=== PATIENT | male | born 1940 | race Two or more races ===

== ENCOUNTER → 2016-10-02 | Outpatient (CLI) | payer MEDICARE, MEDICAID ==
[~2016-10-02] MED LIST: ATOR20TA9 PO; CHOL500050 PO; FERR324T8 PO; GABA300C10 PO; LISI1TAB5 PO; METF10002 PO
[2016-10-02 12:08] LABS: ASPARTATE AMINO TRANSFERASE 9 U/L (15-37); BLOOD UREA NITROGEN 34 mg/dL (7-18)
[2016-10-02 14:05] LABS: ANISOCYTOSIS 2+; MICROCYTOSIS 2+
[2016-10-02 14:06] LABS: OVALOCYTES 1+; POLYCHROMASIA 1+
== END | disposition home or self-care (01) ==
LOC: STAR 10:47
DX: Z01.818 Encounter for other preprocedural examination (principal); R94.31 Abnormal electrocardiogram [ECG] [EKG]; Q27.33 Arteriovenous malformation of digestive system vessel; D64.9 Anemia, unspecified; K92.2 Gastrointestinal hemorrhage, unspecified
CPT/HCPCS: 36415; 80053; 85025; 93005

== ENCOUNTER 2016-10-06 10:13 | Day surgery (SDC) | payer MEDICARE, MEDICAID ==
[~2016-10-06] VITALS: Ht 157.5 cm; Wt 63.0 kg
[2016-10-06] MEDS ORDERED: LACTATED RINGERS 1,000 ML IV SCH (10:25)
[2016-10-06 10:47] VITALS: BP 128/80
[2016-10-06] MEDS ORDERED: MIDAZOLAM 1 MG/ML, 2ML ONE (12:23)
[2016-10-06] MEDS ORDERED: ONDANSETRON 2MG/ML, 2ML ONE (12:35)
[2016-10-06] MEDS ORDERED: PROPOFOL 10 MG/ML, 20ML ONE (12:35)
[2016-10-06] MEDS ORDERED: METOPROLOL 1 MG/ML, 5ML IV PRN (13:00)
[2016-10-06] MEDS ORDERED: ALBUTEROL SULFATE 2.5 MG/3 ML NPPB PRN (13:00)
[2016-10-06] MEDS ORDERED: hydrALAzine 20 MG/ML, 1ML IV PRN (13:00)
[2016-10-06] MEDS ORDERED: ONDANSETRON 2MG/ML, 2ML IVPush PRN (13:00)
[2016-10-06] MEDS ORDERED: ACETAMINOPHEN 325 MG TABLET PO PRN (13:00)
[2016-10-06] MEDS ORDERED: FENTANYL PF 100 MCG/2ML IV PRN (13:00)
[2016-10-06] MEDS ORDERED: LABETALOL 5MG/ML, 20ML IV PRN (13:00)
[2016-10-06] MEDS ORDERED: EPHEDRINE 50 MG/ML, 1ML IVPush PRN (13:00)
[2016-10-06] MEDS ORDERED: HYDROmorphone 1 MG/ML, 1ML IV PRN (13:00)
[2016-10-06] MEDS ORDERED: OXYcodone 5 MG/5 ML ORAL.SOL UDC PO PRN (13:00)
[2016-10-06] MEDS ORDERED: PROMETHAZINE 25 MG/ML, 1ML IV PRN (13:00)
== END 2016-10-06 14:35 ==
LOC: OUT 10:13
DX: K55.21 Angiodysplasia of colon with hemorrhage (principal); K26.9 Duodenal ulcer, unspecified as acute or chronic, without hemorrhage or perforation; D64.9 Anemia, unspecified; I10 Essential (primary) hypertension; E11.9 Type 2 diabetes mellitus without complications
CPT/HCPCS: 44369; 82962; J2250; J2405; J2704; J7120

== ENCOUNTER → 2017-12-07 | Outpatient (CLI) | payer MEDICARE, MEDICAID ==
[~2017-12-07] VITALS: Ht 157.5 cm; Wt 67.3 kg
[~2017-12-07] MED LIST changes: +FURO20TA3 PO; +HYDR-3341 PO; +LINA5TAB PO; +LISI-167 PO; +OMEP20TA62 PO; +SODI650T PO
[2017-12-07 10:19] LABS: BASOPHILS # (AUTO) 0.04 x10^3/uL (0-0.1); BASOPHILS % (AUTO) 1 % (0-1); EOSINOPHILS # (AUTO) 0.38 x10^3/uL (0-0.4); EOSINOPHILS % (AUTO) 5 % (1-7); LYMPHOCYTES # (AUTO) 1.28 x10^3/uL (1-3.4); LYMPHOCYTES % (AUTO) 16 % (22-44); MD NO; MEAN CORPUSCULAR HEMOGLOBIN 31.1 pg (27.5-34.5); MEAN CORPUSCULAR HGB CONC 32.5 g/dL (33.2-36.2); MEAN CORPUSCULAR VOLUME 95.6 fL (81-97); MEAN PLATELET VOLUME 9.6 fL (7.4-10.4); MONOCYTES # (AUTO) 0.56 x10^3/uL (0.2-0.8); MONOCYTES % (AUTO) 7 % (2-9); NEUTROPHILS # (AUTO) 5.69 x10^3/uL (1.8-6.8); NEUTROPHILS % (AUTO) 72 % (42-75); PLATELET COUNT 147 x10^3/uL (130-400); RED BLOOD COUNT 3.67 x10^6/uL (4.38-5.82)
[2017-12-07 10:26] LABS: ALANINE AMINOTRANSFERASE 31 U/L (12-78); ALBUMIN 2.4 g/dL (3.4-5.0); ANION GAP 4 mmol/L (5-15); CALCIUM 8.1 mg/dL (8.5-10.1); CHLORIDE 117 mmol/L (98-107); CREATININE 2.91 mg/dL (0.7-1.3)
[2017-12-07 10:28] LABS: ALKALINE PHOSPHATASE 420 U/L (45-117); BILIRUBIN,TOTAL 0.2 mg/dL (0.2-1.0); TOTAL PROTEIN 6.5 g/dL (6.4-8.2)
== END | disposition home or self-care (01) ==
LOC: STAR 09:08 → EDSTATUS 12-10 09:00
PROVIDERS: ATTEND Internal Medicine Gastroenterology
DX: Z01.818 Encounter for other preprocedural examination (principal); D50.9 Iron deficiency anemia, unspecified; K92.2 Gastrointestinal hemorrhage, unspecified
CPT/HCPCS: 36415; 80053; 85025; 93005

== ENCOUNTER 2019-02-13 15:37 | Outpatient (CLI) | payer MEDICARE, MEDICAID ==
[~2019-02-13 15:37] MED LIST changes: +ATOR20TA37 PO; -ATOR20TA9 PO; +LISI1TAB19 PO; -LISI1TAB5 PO; +METO25TA35 PO; +SEVE800T7 PO; +TOPI25TA32 PO
[2019-02-13 17:19] LABS: BASOPHILS # (AUTO) 0.03 x10^3/uL (0-0.1); BASOPHILS % (AUTO) 1 % (0-1); EOSINOPHILS # (AUTO) 0.28 x10^3/uL (0-0.4); EOSINOPHILS % (AUTO) 5 % (1-7); LYMPHOCYTES # (AUTO) 1.01 x10^3/uL (1-3.4); LYMPHOCYTES % (AUTO) 16 % (22-44); MD NO; MEAN CORPUSCULAR HEMOGLOBIN 33.3 pg (27.5-34.5); MEAN CORPUSCULAR VOLUME 100.9 fL (81-97); MEAN PLATELET VOLUME 9.4 fL (7.4-10.4); MONOCYTES # (AUTO) 0.63 x10^3/uL (0.2-0.8); MONOCYTES % (AUTO) 10 % (2-9); NEUTROPHILS # (AUTO) 4.36 x10^3/uL (1.8-6.8); NEUTROPHILS % (AUTO) 69 % (42-75); PLATELET COUNT 164 x10^3/uL (130-400); RED BLOOD COUNT 2.52 x10^6/uL (4.38-5.82); RED CELL DISTRIBUTION WIDTH 15.7 % (9.4-14.8)
[2019-02-13 17:29] LABS: INTERNATIONAL NORMALIZED RATIO 0.94 (0.93-1.1); PROTHROMBIN TIME 9.9 Seconds (9.6-11.5)
[2019-02-13 17:31] LABS: ALANINE AMINOTRANSFERASE 18 U/L (12-78); ALBUMIN 3.3 g/dL (3.4-5.0); ANION GAP 5 mmol/L (5-15); CALCIUM 8.1 mg/dL (8.5-10.1); CHLORIDE 116 mmol/L (98-107); CREATININE 3.76 mg/dL (0.7-1.3)
[2019-02-13] MEDS ORDERED: Vit D2 PO (17:31)
[2019-02-13 17:34] LABS: ALKALINE PHOSPHATASE 158 U/L (45-117); BILIRUBIN,TOTAL 0.2 mg/dL (0.2-1.0); TOTAL PROTEIN 7.2 g/dL (6.4-8.2)
[2019-02-13 17:40] LABS: HEMOGLOBIN A1C 4.6 % (4.2-6.3)
[2019-02-13 18:34] LABS: HCT (SEDRATE) 25.4 % (39.2-51.8)
[2019-02-22] MEDS ORDERED: AMLO10TA8 PO (15:18)
[2019-02-22] MEDS ORDERED: OXYC5CAP2 PO (15:24)
[2019-02-22] MEDS ORDERED: METH750T2 PO (15:25)
[2019-02-22] MEDS ORDERED: CEPH-368 PO (15:26)
== END 2019-02-13 23:59 | disposition home or self-care (01) ==
LOC: STAR 15:37
PROVIDERS: ATTEND Orthopaedic Surgery Orthopaedic Surgery of the Spine
DX: Z01.818 Encounter for other preprocedural examination (principal); M43.27 Fusion of spine, lumbosacral region; R94.31 Abnormal electrocardiogram [ECG] [EKG]
CPT/HCPCS: 36415; 71046; 80053; 83036; 85025; 85610; 85651; 85730; 93005

== ENCOUNTER 2019-03-02 14:18 | Inpatient (IN) | payer MEDICARE, MEDICAID ==
[~2019-03-02] VITALS: Ht 157.5 cm; Wt 58.2 kg
[~2019-03-02 14:18] MED LIST changes: +AMLO10TA8 PO; +CEPH-368 PO; +METH750T2 PO; +OXYC5CAP2 PO; +Vit D2 PO
[2019-03-02 17:03] LABS: MICROSCOPIC INDICATED
[2019-03-02 17:05] LABS: CULTURE INDICATED? NO
--- NOTE | 2019-03-02 17:32 | NUR ---
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
--- NOTE | 2019-03-02 17:58 | NUR ---
Pt reporting increased lower extremity edema since stopping lasix medication 2 weeks ago as directed by surgeon who preformed him lumbar surgery. Pt also reporting painful/burning urination since yesterday, UA ordered in triage and resulted. Awaiting ERMD evaluation.
--- NOTE | 2019-03-02 18:08 | NUR ---
ERMD has been at bedside, labs ordered, awaiting bloodwork & dispo
[2019-03-02 18:36] LABS: BASOPHILS # (AUTO) 0.02 x10^3/uL (0-0.1); BASOPHILS % (AUTO) 0 % (0-1); EOSINOPHILS # (AUTO) 0.27 x10^3/uL (0-0.4); EOSINOPHILS % (AUTO) 3 % (1-7); LYMPHOCYTES # (AUTO) 0.65 x10^3/uL (1-3.4); LYMPHOCYTES % (AUTO) 8 % (22-44); MD NO; MEAN CORPUSCULAR HEMOGLOBIN 32.4 pg (27.5-34.5); MEAN CORPUSCULAR HGB CONC 32.2 g/dL (33.2-36.2); MEAN CORPUSCULAR VOLUME 100.5 fL (81-97); MEAN PLATELET VOLUME 7.9 fL (7.4-10.4); MONOCYTES # (AUTO) 0.61 x10^3/uL (0.2-0.8); MONOCYTES % (AUTO) 8 % (2-9); NEUTROPHILS # (AUTO) 6.46 x10^3/uL (1.8-6.8); NEUTROPHILS % (AUTO) 81 % (42-75); PLATELET COUNT 229 x10^3/uL (130-400); RED BLOOD COUNT 3.19 x10^6/uL (4.38-5.82); RED CELL DISTRIBUTION WIDTH 18.3 % (9.4-14.8)
[2019-03-02 18:42] LABS: ALBUMIN 2.6 g/dL (3.4-5.0); ANION GAP 4 mmol/L (5-15); CALCIUM 7.7 mg/dL (8.5-10.1); CHLORIDE 112 mmol/L (98-107); CREATININE 3.64 mg/dL (0.7-1.3)
[2019-03-02] MEDS ORDERED: CALCIUM CHLORIDE 10%, 10ML SYR IVPush ONE (19:00)
[2019-03-02] MEDS ORDERED: SODIUM BICARB 8.4%, 50ML SYRINGE IVPush ONE (19:00)
[2019-03-02] MEDS ORDERED: SODIUM CHLORIDE FLUSH 10ML SYR IVF ONE (19:00)
[2019-03-02] MEDS ORDERED: CALCIUM GLUCONATE 4.6 MEQ/10 ML ONE (19:26)
[2019-03-02] MEDS ORDERED: SODIUM BICARBONATE 1 MEQ/ML, 50ML VIAL ONE (19:26)
[2019-03-02] MEDS ORDERED: ERGOCALCIFEROL 50,000 UNIT CAPSULE PO SCH (20:30)
[2019-03-02] MEDS ORDERED: morphine SULFATE 10 MG/ML, 1ML IVPush PRN (21:00)
[2019-03-02] MEDS ORDERED: hydrALAzine 20 MG/ML, 1ML IVPush PRN (21:00)
[2019-03-02] MEDS ORDERED: ONDANSETRON ODT 4 MG PO PRN (21:00)
[2019-03-02] MEDS ORDERED: ONDANSETRON 2MG/ML, 2ML IVPush PRN (21:00)
[2019-03-02] MEDS ORDERED: ACETAMINOPHEN 325 MG TABLET PO PRN (21:00)
[2019-03-02] MEDS ORDERED: OXYcodone IR 5MG TABLET PO PRN (21:00)
[2019-03-02] MEDS ORDERED: PROMETHAZINE 25 MG/ML, 1ML IM PRN (21:00)
[2019-03-02 21:04] VITALS: BP 172/71
[2019-03-02 21:12] LABS: FREE T4 (FREE THYROXINE) 1.15 ng/dL (0.76-1.46)
[2019-03-02] MEDS: HEPARIN 5,000 UNITS/ML, 1ML SQ SCH (23:47)
[2019-03-02] MEDS: SEVELAMER CARBONATE 800MG TAB PO SCH (23:47)
[2019-03-02] MEDS: SODIUM BICARBONATE 650 MG TABLET PO SCH (23:47)
[2019-03-03 01:17] VITALS: BP 162/66
[2019-03-03 06:39] LABS: ALBUMIN 2.2 g/dL (3.4-5.0); ANION GAP 3 mmol/L (5-15); CALCIUM 7.5 mg/dL (8.5-10.1); CHLORIDE 113 mmol/L (98-107)
[2019-03-03 06:40] LABS: MEAN CORPUSCULAR HEMOGLOBIN 31.7 pg (27.5-34.5); MEAN CORPUSCULAR HGB CONC 32.2 g/dL (33.2-36.2); MEAN CORPUSCULAR VOLUME 98.5 fL (81-97); MEAN PLATELET VOLUME 7.7 fL (7.4-10.4); PLATELET COUNT 195 x10^3/uL (130-400); RED BLOOD COUNT 2.85 x10^6/uL (4.38-5.82); RED CELL DISTRIBUTION WIDTH 18.1 % (9.4-14.8)
[2019-03-03 06:44] LABS: ALANINE AMINOTRANSFERASE 19 U/L (12-78); ALKALINE PHOSPHATASE 207 U/L (45-117); BILIRUBIN,TOTAL 0.4 mg/dL (0.2-1.0); CHOL/HDL RATIO 4.4; CHOLESTEROL, TOTAL 128 mg/dL (140-239); CREATININE 3.44 mg/dL (0.7-1.3); HDL CHOL % 23 % (26-37); HDL CHOLESTEROL (DIRECT) 29 mg/dL (40-60); LDL CHOLESTEROL,CALCULATED 73 mg/dL (54-169); LDL/HDL RATIO 2.5 (0.5-3.0); TOTAL PROTEIN 5.1 g/dL (6.4-8.2); TRIGLYCERIDES 132 mg/dL (50-200); VLDL CHOLESTEROL 26 mg/dL (0-25)
[2019-03-03 07:20] LABS: BASOPHILS # (AUTO) 0.02 x10^3/uL (0-0.1); BASOPHILS % (AUTO) 0 % (0-1); EOSINOPHILS % (AUTO) 4 % (1-7); LYMPHOCYTES # (AUTO) 0.55 x10^3/uL (1-3.4); LYMPHOCYTES % (AUTO) 10 % (22-44); MD SCAN; MONOCYTES # (AUTO) 0.55 x10^3/uL (0.2-0.8); MONOCYTES % (AUTO) 10 % (2-9); NEUTROPHILS # (AUTO) 4.19 x10^3/uL (1.8-6.8); NEUTROPHILS % (AUTO) 76 % (42-75)
[2019-03-03] MEDS ORDERED: ACETAMINOPHEN 325 MG TABLET PO PRN (08:00)
[2019-03-03 08:49] VITALS: BP 160/70
[2019-03-03] MEDS ORDERED: METOPROLOL TARTRATE 25 MG TABLET PO SCH (09:00)
[2019-03-03] MEDS ORDERED: AMLODIPINE 10 MG TAB PO SCH (09:00)
[2019-03-03 10:50] VITALS: BP 211/83
[2019-03-03] MEDS: FINASTERIDE 5 MG TABLET PO SCH (10:51)
[2019-03-03] MEDS: SEVELAMER CARBONATE 800MG TAB PO SCH ×3 (10:52→20:51)
[2019-03-03] MEDS: TAMSULOSIN 0.4 MG CAP.ER.24H PO SCH (10:52)
[2019-03-03] MEDS: CARVEDILOL 3.125 MG TABLET PO SCH ×2 (10:52→19:34)
[2019-03-03] MEDS: SODIUM BICARBONATE 650 MG TABLET PO SCH (10:52)
[2019-03-03] MEDS: HEPARIN 5,000 UNITS/ML, 1ML SQ SCH ×2 (10:53→19:34)
[2019-03-03] MEDS: DOCUSATE 100 MG CAPSULE PO PRN (11:03)
[2019-03-03] MEDS: POLYETHYLENE GLYCOL 17 GM PACKET PO PRN (11:03)
[2019-03-03] MEDS ORDERED: SODIUM CHLORIDE 0.9% 1,000 ML IV SCH (13:00)
[2019-03-03 13:42] VITALS: BP 170/79
[2019-03-03] MEDS: BISACODYL 10 MG SUPP PR PRN (15:18)
[2019-03-03] MEDS ORDERED: DEXTROSE 50%, 50ML SYRINGE IVPush PRN (18:00)
[2019-03-03] MEDS ORDERED: GLUCAGON 1 MG IM PRN (18:00)
[2019-03-03] MEDS ORDERED: D5%-0.9% NACL 1,000 ML IV SCH (18:00)
[2019-03-03] MEDS ORDERED: DEXTROSE 4 GM TAB.CHEW PO PRN (18:00)
[2019-03-03 19:35] VITALS: BP 177/76
[2019-03-03 20:03] VITALS: BP 156/69
[2019-03-03] MEDS: INSULIN LISPRO 100 UNITS/ML, PEN SQ-INSULIN SCH (20:36)
[2019-03-03] MEDS: SODIUM CHLORIDE FLUSH 10ML SYR IVF SCH (20:54)
[2019-03-04 01:50] VITALS: BP 107/63
[2019-03-04] MEDS: HEPARIN 5,000 UNITS/ML, 1ML SQ SCH ×3 (03:20→20:29)
[2019-03-04 05:08] LABS: BASOPHILS # (AUTO) 0.02 x10^3/uL (0-0.1); BASOPHILS % (AUTO) 0 % (0-1); EOSINOPHILS # (AUTO) 0.28 x10^3/uL (0-0.4); EOSINOPHILS % (AUTO) 5 % (1-7); LYMPHOCYTES % (AUTO) 12 % (22-44); MD NO; MEAN CORPUSCULAR HEMOGLOBIN 32.5 pg (27.5-34.5); MEAN CORPUSCULAR HGB CONC 32.5 g/dL (33.2-36.2); MEAN PLATELET VOLUME 7.9 fL (7.4-10.4); MONOCYTES % (AUTO) 9 % (2-9); NEUTROPHILS # (AUTO) 4.26 x10^3/uL (1.8-6.8); NEUTROPHILS % (AUTO) 74 % (42-75); PLATELET COUNT 200 x10^3/uL (130-400); RED BLOOD COUNT 2.74 x10^6/uL (4.38-5.82); RED CELL DISTRIBUTION WIDTH 18.7 % (9.4-14.8)
[2019-03-04 05:18] LABS: CALCIUM 7.5 mg/dL (8.5-10.1); CHLORIDE 114 mmol/L (98-107)
[2019-03-04 05:19] LABS: % IRON SATURATION 48 % (20-55); IRON LEVEL 69 mcg/dL (65-175); TOTAL IRON BINDING CAPACITY 143 mcg/dL (250-450)
[2019-03-04 05:35] LABS: ANION GAP 3 mmol/L (5-15)
[2019-03-04 06:00] VITALS: BP 142/65
[2019-03-04] MEDS: CARVEDILOL 3.125 MG TABLET PO SCH ×2 (06:07→18:38)
[2019-03-04 07:05] VITALS: BP 146/69
[2019-03-04] MEDS: INSULIN LISPRO 100 UNITS/ML, PEN SQ-INSULIN SCH (07:53)
[2019-03-04] MEDS: FINASTERIDE 5 MG TABLET PO SCH (08:20)
[2019-03-04] MEDS: TAMSULOSIN 0.4 MG CAP.ER.24H PO SCH (08:20)
[2019-03-04] MEDS: SEVELAMER CARBONATE 800MG TAB PO SCH ×3 (08:20→20:29)
[2019-03-04] MEDS: SODIUM CHLORIDE FLUSH 10ML SYR IVF SCH ×2 (08:21→20:31)
[2019-03-04] MEDS ORDERED: DEXTROSE 50%, 50ML SYRINGE IVPush ONE ×2 (09:00→10:00)
[2019-03-04] MEDS ORDERED: INSULIN REGULAR 100 UNITS/ML, 3ML VIAL IVPush ONE (09:00)
[2019-03-04] MEDS ORDERED: FUROSEMIDE 40 MG/4 ML IV ONE ×2 (09:00→19:30)
[2019-03-04] MEDS ORDERED: FUROSEMIDE 100 MG/10 ML IV ONE (10:00)
[2019-03-04] MEDS ORDERED: INSULIN REGULAR 100 UNITS/ML, 3ML VIAL IV ONE (10:00)
[2019-03-04] MEDS: CALCIUM CARBONATE 500 MG TAB.CHEW PO SCH ×2 (10:03→20:30)
[2019-03-04 12:42] VITALS: BP 144/63
[2019-03-04] MEDS ORDERED: D5%-0.9% NACL 1,000 ML IV SCH (13:30)
[2019-03-04] MEDS ORDERED: SODIUM BICARBONATE IV SCH (19:30)
[2019-03-04] MEDS ORDERED: D5 IV SCH (19:30)
[2019-03-04] MEDS ORDERED: NACL IV SCH (19:30)
[2019-03-04] MEDS ORDERED: CALCIUM GLUCONATE 4.6 MEQ in SODIUM CHLORIDE 0.9% 50 ML IV ONE (20:00)
[2019-03-04 20:05] VITALS: BP 169/70
[2019-03-05 01:46] VITALS: BP 152/61
[2019-03-05 05:44] LABS: ANION GAP 3 mmol/L (5-15); CALCIUM 7.5 mg/dL (8.5-10.1); CHLORIDE 113 mmol/L (98-107)
[2019-03-05 05:46] LABS: CREATININE 3.36 mg/dL (0.7-1.3)
[2019-03-05] MEDS: HEPARIN 5,000 UNITS/ML, 1ML SQ SCH ×3 (05:50→21:56)
[2019-03-05] MEDS: CARVEDILOL 3.125 MG TABLET PO SCH ×2 (05:52→17:20)
[2019-03-05 07:28] VITALS: BP 143/64
[2019-03-05] MEDS: TAMSULOSIN 0.4 MG CAP.ER.24H PO SCH (08:22)
[2019-03-05] MEDS: CALCIUM CARBONATE 500 MG TAB.CHEW PO SCH ×2 (08:22→21:56)
[2019-03-05] MEDS: SEVELAMER CARBONATE 800MG TAB PO SCH ×3 (08:23→21:57)
[2019-03-05] MEDS: SODIUM CHLORIDE FLUSH 10ML SYR IVF SCH ×2 (08:23→21:57)
[2019-03-05] MEDS ORDERED: FUROSEMIDE 40 MG/4 ML IV ONE ×2 (08:30→09:00)
[2019-03-05] MEDS ORDERED: FUROSEMIDE 100 MG/10 ML IV ONE (09:00)
[2019-03-05] MEDS: FINASTERIDE 5 MG TABLET PO SCH (09:07)
[2019-03-05 14:25] VITALS: BP 153/65
[2019-03-05] MEDS ORDERED: SODIUM BICARBONATE IV SCH (19:30)
[2019-03-05] MEDS ORDERED: D5 IV SCH (19:30)
[2019-03-05] MEDS ORDERED: NACL IV SCH (19:30)
[2019-03-05 20:02] VITALS: BP 163/66
[2019-03-06] VITALS (8 sets, daily range): BP systolic 135–170; BP diastolic 60–80
[2019-03-06] MEDS: HEPARIN 5,000 UNITS/ML, 1ML SQ SCH ×3 (05:59→21:01)
[2019-03-06] MEDS: CARVEDILOL 3.125 MG TABLET PO SCH ×2 (06:01→17:34)
[2019-03-06 06:56] LABS: ANION GAP 3 mmol/L (5-15); CALCIUM 7.3 mg/dL (8.5-10.1); CHLORIDE 112 mmol/L (98-107)
[2019-03-06] MEDS: FINASTERIDE 5 MG TABLET PO SCH (09:20)
[2019-03-06] MEDS: CALCIUM CARBONATE 500 MG TAB.CHEW PO SCH ×2 (09:20→21:01)
[2019-03-06] MEDS: TAMSULOSIN 0.4 MG CAP.ER.24H PO SCH (09:20)
[2019-03-06] MEDS: SEVELAMER CARBONATE 800MG TAB PO SCH ×3 (09:20→21:02)
[2019-03-06] MEDS: SODIUM CHLORIDE FLUSH 10ML SYR IVF SCH ×2 (09:22→21:02)
[2019-03-06] MEDS: BISACODYL 10 MG SUPP PR PRN (17:35)
[2019-03-06] MEDS: NACL IV SCH (18:17)
[2019-03-06] MEDS: D5 IV SCH (18:17)
[2019-03-06] MEDS: SODIUM BICARBONATE IV SCH (18:17)
[2019-03-06] MEDS: DOCUSATE 100 MG CAPSULE PO PRN (18:18)
[2019-03-06] MEDS: POLYETHYLENE GLYCOL 17 GM PACKET PO PRN (18:18)
[2019-03-07] VITALS (7 sets, daily range): BP systolic 133–161; BP diastolic 63–74
[2019-03-07] MEDS: CARVEDILOL 3.125 MG TABLET PO SCH ×2 (06:09→17:01)
[2019-03-07] MEDS: HEPARIN 5,000 UNITS/ML, 1ML SQ SCH (06:09)
[2019-03-07 06:12] LABS: ANION GAP 3 mmol/L (5-15); CALCIUM 7.3 mg/dL (8.5-10.1); CHLORIDE 111 mmol/L (98-107); CREATININE 3.68 mg/dL (0.7-1.3)
[2019-03-07] MEDS: FINASTERIDE 5 MG TABLET PO SCH (08:53)
[2019-03-07] MEDS: CALCIUM CARBONATE 500 MG TAB.CHEW PO SCH ×2 (08:53→20:38)
[2019-03-07] MEDS: SEVELAMER CARBONATE 800MG TAB PO SCH ×3 (08:53→20:38)
[2019-03-07] MEDS: TAMSULOSIN 0.4 MG CAP.ER.24H PO SCH (08:53)
[2019-03-07] MEDS: SODIUM BICARBONATE IV SCH (08:56)
[2019-03-07] MEDS: D5 IV SCH (08:56)
[2019-03-07] MEDS: NACL IV SCH (08:56)
[2019-03-07] MEDS: SODIUM CHLORIDE FLUSH 10ML SYR IVF SCH ×2 (08:56→20:39)
[2019-03-07] MEDS ORDERED: SODIUM POLYSTYRENE SULFONATE ORAL SUSP PO ONE (12:30)
[2019-03-08] VITALS (8 sets, daily range): BP systolic 149–168; BP diastolic 63–70
[2019-03-08] MEDS: NACL IV SCH (01:36)
[2019-03-08] MEDS: D5 IV SCH (01:36)
[2019-03-08] MEDS: SODIUM BICARBONATE IV SCH (01:36)
[2019-03-08] MEDS: CARVEDILOL 3.125 MG TABLET PO SCH ×2 (02:33→06:04)
[2019-03-08 06:06] LABS: CALCIUM 7.4 mg/dL (8.5-10.1); CREATININE 3.47 mg/dL (0.7-1.3)
[2019-03-08 06:26] LABS: ANION GAP 6 mmol/L (5-15); CHLORIDE 112 mmol/L (98-107)
[2019-03-08] MEDS: SODIUM CHLORIDE FLUSH 10ML SYR IVF SCH ×2 (09:00→21:26)
[2019-03-08] MEDS ORDERED: SODIUM POLYSTYRENE SULFONATE ORAL SUSP PO ONE (09:30)
[2019-03-08] MEDS: SEVELAMER CARBONATE 800MG TAB PO SCH ×2 (09:51→16:04)
[2019-03-08] MEDS: TAMSULOSIN 0.4 MG CAP.ER.24H PO SCH (09:51)
[2019-03-08] MEDS: CALCIUM CARBONATE 500 MG TAB.CHEW PO SCH ×2 (09:51→21:26)
[2019-03-08] MEDS: FINASTERIDE 5 MG TABLET PO SCH (09:51)
[2019-03-08] MEDS: DOCUSATE 100 MG CAPSULE PO SCH ×2 (16:30→21:00)
[2019-03-09 01:12] VITALS: BP 160/69
[2019-03-09 05:29] LABS: CHLORIDE 113 mmol/L (98-107)
[2019-03-09 05:39] LABS: ALANINE AMINOTRANSFERASE 23 U/L (12-78); ALBUMIN 2.1 g/dL (3.4-5.0); ALKALINE PHOSPHATASE 198 U/L (45-117); ANION GAP 4 mmol/L (5-15); BILIRUBIN,TOTAL 0.2 mg/dL (0.2-1.0); CALCIUM 7.2 mg/dL (8.5-10.1)
[2019-03-09 06:50] VITALS: BP 147/68
[2019-03-09] MEDS: FINASTERIDE 5 MG TABLET PO SCH (08:38)
[2019-03-09] MEDS: TAMSULOSIN 0.4 MG CAP.ER.24H PO SCH (08:38)
[2019-03-09] MEDS: CALCIUM CARBONATE 500 MG TAB.CHEW PO SCH (08:38)
[2019-03-09] MEDS: SEVELAMER CARBONATE 800MG TAB PO SCH ×2 (08:38→11:26)
[2019-03-09] MEDS: SODIUM CHLORIDE FLUSH 10ML SYR IVF SCH (08:39)
[2019-03-09] MEDS: DOCUSATE 100 MG CAPSULE PO SCH (08:39)
[2019-03-09] MEDS ORDERED: MAGNESIUM HYDROXIDE 8%, 30ML UDC PO SCH (09:00)
[2019-03-09] MEDS ORDERED: CALC200T24 PO (10:54)
[2019-03-09] MEDS ORDERED: TAMS-11 PO (10:54)
[2019-03-09] MEDS ORDERED: DOCU100C33 PO (10:54)
[2019-03-09] MEDS ORDERED: HYDR-3342 PO (10:54)
[2019-03-09] MEDS ORDERED: FINA5TAB4 PO (10:54)
[2019-03-09 13:10] VITALS: BP 171/68
[2019-03-09 13:15] VITALS: BP 131/77
== END 2019-03-09 15:30 | disposition home health service (06) | DRG 682 ==
LOC: ED 19:24 → EDIP 20:02 → 4WST 20:53 → DCLOUNGE 03-09 15:20
PROVIDERS: ADMIT Internal Medicine; ATTEND Internal Medicine
PROC: 0T9B70Z Drainage of Bladder with Drainage Device, Via Natural or Artificial Opening (ICD-10-PCS; principal; 2019-03-02)
DX: N17.9 Acute kidney failure, unspecified (principal); I50.21 Acute systolic (congestive) heart failure; E44.1 Mild protein-calorie malnutrition; N13.8 Other obstructive and reflux uropathy; N40.1 Benign prostatic hyperplasia with lower urinary tract symptoms; N18.4 Chronic kidney disease, stage 4 (severe); I12.9 Hypertensive chronic kidney disease with stage 1 through stage 4 chronic kidney disease, or unspecified chronic kidney disease; E11.22 Type 2 diabetes mellitus with diabetic chronic kidney disease; E11.649 Type 2 diabetes mellitus with hypoglycemia without coma; I45.9 Conduction disorder, unspecified; E87.5 Hyperkalemia; E83.51 Hypocalcemia; D64.9 Anemia, unspecified; G47.00 Insomnia, unspecified; G89.29 Other chronic pain; M54.9 Dorsalgia, unspecified; K59.00 Constipation, unspecified; R33.8 Other retention of urine; Z68.23 Body mass index [BMI] 23.0-23.9, adult; I44.1 Atrioventricular block, second degree
CPT/HCPCS: 36415; 76770; 80048; 80053; 80061; 81001; 82040; 82306; 82330; 82947; 82962; 83036; 83540; 83550; 83735; 83880; 83970; 84100; 84132; 84439; 84443; 85025; 93005; G0378; J0610; J1644; J1815; J1940; J7042; J0360; J7030

== ENCOUNTER → 2020-09-27 | Outpatient (CLI) | payer MEDICARE, MEDICAID ==
[~2020-09-27] MED LIST changes: +AMLO-211 PO; -AMLO10TA8 PO; +CALC ACETATE PO; +CALC200T24 PO; +DOCU100C33 PO; +FERR324T5 PO; +FINA5TAB4 PO; +FURO80TA3 PO; +HYDR-3342 PO; -LISI1TAB19 PO; +LISI1TAB39 PO; +METH-640 PO; -METH750T2 PO; +PANT40TA6 PO; +TAMS-11 PO; +[UNRECOGNIZED DRUG - OTHER] PO
[2020-09-27 16:33] LABS: BASOPHILS % (AUTO) 1 % (0-1); EOSINOPHILS % (AUTO) 3 % (1-7); LYMPHOCYTES % (AUTO) 13 % (22-44); MEAN CORPUSCULAR HGB CONC 32.8 g/dL (33.2-36.2); MEAN PLATELET VOLUME 10.3 fL (7.4-10.4); MONOCYTES % (AUTO) 11 % (2-9); NEUTROPHILS % (AUTO) 73 % (42-75); PLATELET COUNT 67 x10^3/uL (130-400); RED BLOOD COUNT 3.26 x10^6/uL (4.38-5.82); RED CELL DISTRIBUTION WIDTH 16.8 % (9.4-14.8)
[2020-09-27 16:34] LABS: ALBUMIN 3.7 g/dL (3.4-5.0); ANION GAP 3 mmol/L (5-15); CALCIUM 9.2 mg/dL (8.5-10.1); CHLORIDE 98 mmol/L (98-107); MD NO
[2020-09-27 16:36] LABS: INTERNATIONAL NORMALIZED RATIO 1.02 (0.93-1.1); PROTHROMBIN TIME 10.9 Seconds (9.6-11.5)
[2020-09-27 16:38] LABS: ALANINE AMINOTRANSFERASE 9 U/L (12-78); ALKALINE PHOSPHATASE 97 U/L (45-117); BILIRUBIN,TOTAL 0.5 mg/dL (0.2-1.0); CREATININE 4.43 mg/dL (0.7-1.3); TOTAL PROTEIN 7.6 g/dL (6.4-8.2)
== END | disposition home or self-care (01) ==
LOC: STAR 14:16
PROVIDERS: ATTEND Internal Medicine Geriatric Medicine
DX: Z01.818 Encounter for other preprocedural examination (principal); K92.2 Gastrointestinal hemorrhage, unspecified; I44.0 Atrioventricular block, first degree; R94.31 Abnormal electrocardiogram [ECG] [EKG]; Z20.822 Contact with and (suspected) exposure to COVID-19
CPT/HCPCS: 36415; 80053; 82728; 83540; 83550; 85025; 85610; 85730; 93005; U0003; U0005

== ENCOUNTER 2020-10-01 05:51 | Day surgery (SDC) | payer MEDICARE, MEDICAID ==
[~2020-10-01] VITALS: Ht 152.4 cm; Wt 57.0 kg
[2020-10-01] MEDS ORDERED: CHLORHEXIDINE 15 ML UDC PO ONE (07:00)
[2020-10-01 07:14] VITALS: BP 167/68
[2020-10-01 07:21] LABS: ANION GAP 6 mmol/L (5-15); CALCIUM 8.3 mg/dL (8.5-10.1); CHLORIDE 102 mmol/L (98-107)
[2020-10-01 07:24] LABS: CREATININE 6.63 mg/dL (0.7-1.3)
[2020-10-01] MEDS ORDERED: METOPROLOL 1 MG/ML, 5ML IV PRN (07:30)
[2020-10-01] MEDS ORDERED: SODIUM CHLORIDE 0.9% 1,000 ML IV SCH (07:30)
[2020-10-01] MEDS ORDERED: OXYcodone 5 MG/5 ML ORAL.SOL UDC PO PRN (07:30)
[2020-10-01] MEDS ORDERED: PROMETHAZINE 25 MG/ML, 1ML IVPush PRN (07:30)
[2020-10-01] MEDS ORDERED: EPHEDRINE 50 MG/ML, 1ML IVPush PRN (07:30)
[2020-10-01] MEDS ORDERED: DIPHENHYDRAMINE 50 MG/ML, 1ML IVPush PRN (07:30)
[2020-10-01] MEDS ORDERED: ONDANSETRON 2MG/ML, 2ML IVPush PRN (07:30)
[2020-10-01] MEDS ORDERED: hydrALAzine 20 MG/ML, 1ML IV PRN (07:30)
[2020-10-01] MEDS ORDERED: HALOPERIDOL 5 MG/ML IV PRN (07:30)
[2020-10-01] MEDS ORDERED: ACETAMINOPHEN 325 MG TABLET PO PRN (07:30)
[2020-10-01] MEDS ORDERED: LABETALOL 5MG/ML, 20ML IV PRN (07:30)
[2020-10-01] MEDS ORDERED: FENTANYL PF 100 MCG/2ML IV PRN (07:30)
[2020-10-01] MEDS ORDERED: FENTANYL PF 100 MCG/2ML ONE (07:42)
[2020-10-01] MEDS ORDERED: LIDOCAINE 1%, 20ML ONE (07:51)
[2020-10-01] MEDS ORDERED: PROPOFOL 10 MG/ML, 20ML ONE (07:51)
[2020-10-01 08:41] LABS: ALBUMIN 3.2 g/dL (3.4-5.0); BILIRUBIN,TOTAL 0.3 mg/dL (0.2-1.0); TOTAL PROTEIN 6.7 g/dL (6.4-8.2)
[2020-10-01 09:37] LABS: ALANINE AMINOTRANSFERASE 8 U/L (12-78)
[2020-10-01 09:39] LABS: ALKALINE PHOSPHATASE 96 U/L (45-117)
== END 2020-10-01 11:20 | disposition home or self-care (01) ==
LOC: OUT 05:51
PROVIDERS: ATTEND Internal Medicine Geriatric Medicine
DX: D64.9 Anemia, unspecified (principal); D12.2 Benign neoplasm of ascending colon; D12.4 Benign neoplasm of descending colon; D12.3 Benign neoplasm of transverse colon; K92.2 Gastrointestinal hemorrhage, unspecified; E11.22 Type 2 diabetes mellitus with diabetic chronic kidney disease; N18.6 End stage renal disease; Z79.899 Other long term (current) drug therapy; Z86.010 Personal history of colon polyps; Z99.2 Dependence on renal dialysis
CPT/HCPCS: 36415; 43235; 45380; 80053; 82962; 88305; J2704; J3010; J7030